=== PATIENT | female | born 1970 | race Caucasian/White ===

== ENCOUNTER → 2025-02-25 | Outpatient (CLI) | payer OTHER, SELFPAY ==
--- NOTE | 2025-02-25 | XR_ITS ---
Examination: Hand, right 2 views Technique: Hand AP, lateral 3 views Date and time of exam: February 25, 2025 1110 hours INDICATIONS: Right hand pain 3 months, trigger finger thumb and first digit FINDINGS: Moderate osteoarthritis distal interphalangeal joints third and second digits Mild osteoarthritis interphalangeal joint first digit No erosive arthritis No fracture IMPRESSION: Osteoarthritis as above
== END | disposition home or self-care (01) ==
LOC: CDIM 10:58
PROVIDERS: PCP Nurse Practitioner Family; Referring Provider Nurse Practitioner Family; Visit Provider Nurse Practitioner Family
DX: M19.041 Primary osteoarthritis, right hand (principal)
CPT/HCPCS: 73120